=== PATIENT | male | born 1950 | race Caucasian/White ===

== ENCOUNTER → 2020-04-17 | Outpatient (CLI) | payer MEDICARE, MEDICAID ==
[~2020-04-17] MED LIST: ALEVE 220MG220 MG PO; CARDURA4 MG PO; CEPHALEXIN500 M1 PO; CLARITIN 1010 MG/TAB PO; MAGNESIUM; MOBIC15 MG PO; MULTIVITAM; POTASSIUM OTC; VITAMIN D32000 IU PO
[2020-04-17 19:21] LABS: TROPONIN-I < 0.012 ng/mL (0.000-0.035)
== END ==
LOC: ZCOL.LAB 18:19
PROVIDERS: Internal Medicine Interventional Cardiology
DX: R06.02 Shortness of breath (principal)

== ENCOUNTER → 2020-04-19 | Outpatient (CLI) | payer MEDICARE, MEDICAID | LOC: COL.RAD 13:21 | DX: T82.120A Displacement of cardiac electrode, initial encounter (principal) ==

== ENCOUNTER → 2021-02-04 | Outpatient (CLI) | payer MEDICARE, MEDICAID | LOC: COL.RAD | DX: Z13.6 Encounter for screening for cardiovascular disorders (principal) ==

== ENCOUNTER → 2022-05-26 | Outpatient (CLI) | payer MEDICARE, MEDICAID | LOC: COL.RAD 10:06 | DX: R10.32 Left lower quadrant pain (principal) ==

== ENCOUNTER → 2022-07-01 | Outpatient (CLI) | payer MEDICARE, MEDICAID | LOC: COL.PUL 07:57 | DX: Z01.89 Encounter for other specified special examinations (principal) ==

== ENCOUNTER → 2022-08-01 | Outpatient (CLI) | payer MEDICARE, MEDICAID | LOC: COL.PUL 09:55 | DX: R06.02 Shortness of breath (principal) ==

== ENCOUNTER 2024-07-16 12:15 | Emergency (ER) | payer MEDICARE, MEDICAID ==
[~2024-07-16] VITALS: Ht 188 cm; Wt 106.8 kg
[~2024-07-16 12:15] MED LIST changes: +ASPIRIN 81M81 MG/TA2 PO; +BENADRYL25 M2 PO; +CIALIS5 MG PO; +COREG 3.123.125 MG/T PO; +DETROL LA4 PO; +FLOMAX 0.40.4 MG/CAP PO; +MOTRIN 200200 MG/TAB PO; +MYRBETR50MG PO; +SYNTHROID 0.0.025 MG PO; +XYZAL5 MG PO; +ZESTRIL 10MG10 MG PO
[2024-07-16 12:20] VITALS: TEMP 98
[2024-07-16] MEDS ORDERED: CEPHALEXIN500 M1 PO ×2 (14:08→15:32)
[2024-07-16] MEDS ORDERED: PERCOCET 325 MG1 TA2 PO ×2 (14:08→15:32)
[2024-07-16] MEDS ORDERED: cefTRIAXone 1 G,Lidocaine PF 1% 2.1 ML IM ONE (14:15)
[2024-07-16 14:32] VITALS: BP 148/78; PULSE 76
== END 2024-07-16 14:32 | disposition home or self-care (01) ==
LOC: COL.ER 12:15
DX: S62.617A Displaced fracture of proximal phalanx of left little finger, initial encounter for closed fracture (principal); Z79.01 Long term (current) use of anticoagulants; W01.198A Fall on same level from slipping, tripping and stumbling with subsequent striking against other object, initial encounter
CPT/HCPCS: J0696